=== PATIENT | female | born 1955 | race Caucasian/White ===

== ENCOUNTER → 2017-01-02 | Outpatient (CLI) | payer BC, OTHER | LOC: FIMAGING 11:43 | DX: Z12.31 Encounter for screening mammogram for malignant neoplasm of breast (principal) | CPT/HCPCS: G0202 ==

== ENCOUNTER → 2017-10-31 | Outpatient (CLI) | payer OTHER | LOC: FIMAGING 08:59 | PROVIDERS: ATTEND Family Medicine | DX: Z13.820 Encounter for screening for osteoporosis (principal); M85.88 Other specified disorders of bone density and structure, other site ==

== ENCOUNTER → 2017-11-20 | Outpatient (CLI) | payer OTHER ==
--- NOTE | 2017-11-20 11:53 | CPEKG ---
Heart Rate: 68 RR Interval: 882 P-R Interval: 148 QRSD Interval: 82 QT Interval: 416 QTC Interval: 443 P [place]: 70 QRS [place]: 76 T Wave [place]: 73 EKG Severity - NORMAL ECG - EKG Impression: SINUS RHYTHM Electronically Signed By: Trae Luciano 20-Nov-2017 12:35:25
== END ==
LOC: FCP 09:58
PROVIDERS: ATTEND Specialist
DX: Z01.810 Encounter for preprocedural cardiovascular examination (principal)

== ENCOUNTER → 2018-01-15 | Outpatient (CLI) | payer OTHER | LOC: FIMAGING 10:17 | PROVIDERS: ATTEND Family Medicine | DX: Z12.31 Encounter for screening mammogram for malignant neoplasm of breast (principal) ==

== ENCOUNTER 2018-03-28 06:35 | Emergency (ER) | payer OTHER ==
[2018-03-28] MEDS ORDERED: ADENOSINE 6 MG/2 ML VIAL ONE (06:45)
[2018-03-28] MEDS ORDERED: ADENOSINE 6 MG/2 ML VIAL IVP ONE (06:48)
[2018-03-28] MEDS ORDERED: NS 1,000 ML IV ONE (06:48)
--- NOTE | 2018-03-28 06:53 | CPEKG ---
Heart Rate: 177 RR Interval: 339 QRSD Interval: 76 QT Interval: 276 QTC Interval: 474 P [place]: 0 QRS [place]: 68 T Wave [place]: 255 EKG Severity - ABNORMAL ECG - EKG Impression: SUPRAVENTRICULAR TACHYCARDIA EKG Impression: REPOLARIZATION ABNORMALITY, PROB RATE RELATED Electronically Signed By: Jose Juan Benavides 28-Mar-2018 07:23:44
--- NOTE | 2018-03-28 06:54 | EDPHY ---
H & P Time Seen by Provider: 03/28/18 06:50 HPI/ROS: Chief Complaint: Rapid heart rate HPI: 62-year-old woman with a history of recurrent SVT is presenting with a rapid heart rate which started about 530 this morning. Patient states that feels just like her prior SVT. She has required chemical cardioversion multiple times in the past. She has seen Dr. Pike, cardiology. He gave her metoprolol to take this happened but she did not take it this morning. No recent illness. No fevers or chills. No nausea or vomiting. Mild aching in her left arm central chest. She does state that she did try a new herbal remedy for constipation yesterday and wonders if this is contributing to this. She attempted vagal maneuvers at home including putting her face and ice water without any change. This feels exactly like her prior episodes. ROS: 10 point Review of Systems is negative except as noted in the HPI. PMH: SVT Social History: No smoking, no alcohol, no recreational drug use Family History: non-contributory Physical Exam: Gen: Awake, Alert, No Distress HEENT: Nose: no rhinorrhea Eyes: PERRLA, EOMI Mouth: Moist mucosa Neck: Supple, no JVD Chest: nontender, lungs clear to auscultation Heart: S1, S2 normal, tachycardic at a rate of 180, regular Abd: Soft, non-tender, no guarding Back: no CVA tenderness, no midline tenderness Ext: no edema, non-tender Skin: no rash Neuro: CN II-XII intact, Sensation grossly intact, Strength 5/5 in bilateral upper and lower extremities - Medical/Surgical History Hx Asthma: No Hx Chronic Respiratory Disease: No Hx Diabetes: No Hx Cardiac Disease: Yes Hx Renal Disease: No Hx Cirrhosis: No Hx Alcoholism: No Hx HIV/AIDS: No Hx Splenectomy or Spleen Trauma: No Other PMH: SVT, , partial nephrectomy-for benign tumor, rectal vagina fistula, - Social History Smoking Status: Never smoked Allergies/Adverse Reactions: No Known Allergies Allergy (Unverified 08/31/16 02:43) Home Medications: Medication Instructions Recorded Progesterone [First-Progesterone 100 mg VG 09/12/12 Vgs 100] buPROPion XL [Wellbutrin Xl] 150 mg PO DAILY 09/12/12 Estradiol 01/08/15 Medical Decision Making - Diagnostics EKG Interpretation: The ECG time 6:47 a.m., SVT with a rate of 177. Procedures: Procedure: Chemical cardioversion. The patient was chemically cardioverted with 6 mg of adenosine for her SVT. The cardioversion was successful. The patient tolerated the procedure well with no complications. The procedure was performed by myself. ED Course/Re-evaluation: 62-year-old woman with a history recurrent SVT presenting in SVT this morning. Vagal maneuvers were attempted he by me without success. An IV was placed. We chemically cardioverted her with 6 mg of adenosine with convey inversion to a sinus rhythm. Patient tolerated the procedure well. She return to a sinus rhythm. She is observed in the emergency department. Had for no further episodes of tachycardia. She will be discharged with instructions to follow up with her icing coater, Dr. Pike, return for any concerns. Departure - Departure Disposition: Home, Routine, Self-Care Clinical Impression: Supraventricular tachycardia Condition: Good Instructions: Supraventricular Tachycardia (ED) Additional Instructions: Follow up with her icing coater, Dr. Pike, in 2-3 days for further evaluation. If you're tachycardia resumes take the metoprolol as directed by your icing coater. Return to the emergency department for uncontrolled tachycardia, lightheadedness , chest pain, shortness of breath, or any other concerns. Referrals: No Starkey MD [Primary Care Provider] - As per Instructions
[2018-03-28 07:29] VITALS: BP 107/74
== END 2018-03-28 08:16 | disposition home or self-care (01) ==
DX: I47.1 Supraventricular tachycardia (principal); E86.9 Volume depletion, unspecified
CPT/HCPCS: 96374; J0153

== ENCOUNTER → 2019-01-27 | Outpatient (CLI) | payer BC, OTHER | LOC: FIMAGING 09:24 | PROVIDERS: ATTEND Family Medicine | DX: Z12.31 Encounter for screening mammogram for malignant neoplasm of breast (principal) ==

== ENCOUNTER → 2019-02-05 | Outpatient (CLI) | payer BC | LOC: FIMAGING 09:58 | PROVIDERS: ATTEND Family Medicine | DX: R22.41 Localized swelling, mass and lump, right lower limb (principal) ==

== ENCOUNTER → 2019-02-13 | Outpatient (CLI) | payer BC ==
[~2019-02-13] MED LIST: GADOBUTROL 10 ML VIAL IVP ONE
== END ==
LOC: FIMAGING 06:33
PROVIDERS: ATTEND Family Medicine
DX: R22.41 Localized swelling, mass and lump, right lower limb (principal); R59.0 Localized enlarged lymph nodes
CPT/HCPCS: A9585

== ENCOUNTER → 2019-02-17 | Outpatient (CLI) | payer BC ==
[~2019-02-17] MED LIST changes: -GADOBUTROL 10 ML VIAL IVP ONE; +LIDOCAINE 1% 300 MG/30 ML SDV ONE
== END ==
LOC: FIMAGING 10:03
PROVIDERS: ATTEND Radiology Diagnostic Radiology
PROC: 0JBC3ZX Excision of Pelvic Region Subcutaneous Tissue and Fascia, Percutaneous Approach, Diagnostic (ICD-10-PCS; principal; 2019-02-17)
PROC: BH48ZZZ Ultrasonography of Lower Extremity (ICD-10-PCS; principal; 2019-02-17)
DX: C82.05 Follicular lymphoma grade I, lymph nodes of inguinal region and lower limb (principal)
CPT/HCPCS: 88184-90; 88185-91